=== PATIENT | male | born 1975 | race Caucasian/White ===

== ENCOUNTER → 2016-04-25 | Outpatient (CLI) | payer OTHER ==
--- NOTE | 2016-04-25 20:20 | CONS ---
DATE OF CONSULTATION: REASON FOR CONSULTATION: Sleep apnea This is a 41-year-old male patient coming in upon the request of his primary care physician and his to be evaluated for obstructive sleep apnea. The patient has a brother and his mother having obstructive sleep apnea and both of them are on treatment. He snores. He stops breathing at night. He occasionally wakes up choking and gasping for air. He goes to bed around 11:00 p.m., wakes up at 6:30 a.m. in the morning and he seems to be averaging around 5 hours of sleep. He is a bit tired and sleepy during the day. His Cameron score is 5. No recent weight gain. No alcoholism. No substance abuse. He prefers to sleep on his side rather than on his back. No sleep paralysis. No hallucinations. No cataplexy. No grinding of the teeth. No sleepwalking or sleep talking. PAST MEDICAL HISTORY: Negative. Surgical history negative. Drug allergies are not known. Medications are none. SOCIAL HISTORY: Nonsmoker. No history of alcohol. No history of IV drugs. He works for [employer]. FAMILY HISTORY: Positive for HEIDE including mother and brother. REVIEW OF SYSTEMS: Twelve-point review of systems was done. Positive findings were all mentioned above in the history of present illness. BP 140/89, pulse 73, respirations 16, temperature 98.0. Saturation 96% on room air. Weight is 229. Height 71 inches. BMI is 31.9. Neck size 17 inches. GENERAL APPEARANCE: Calm, comfortable. HEENT: Mallampati Class II. There is no goiter, neck masses. LUNGS: Clear to auscultation. HEART: Sounds are regular rate and rhythm. Normal S1, S2. ABDOMEN: Soft, nontender. No organomegaly. EXTREMITIES: No edema, cyanosis, or clubbing. IMPRESSION: 1. Obstructive sleep apnea suspected, currently under investigation. 2. Snoring. 3. Poor sleep quality. 4. Obesity with body mass index of 31.9. PLAN: 1. Weight loss. 2. Optimize sleep hygiene measures. 3. Proceed with a screening polysomnogram to evaluate this patient for obstructive sleep apnea and will make further recommendations accordingly.
== END | disposition home or self-care (01) ==
LOC: SLEEP 16:01
PROVIDERS: ATTEND Internal Medicine Critical Care Medicine
DX: G47.33 Obstructive sleep apnea (adult) (pediatric) (principal); E66.9 Obesity, unspecified; Z68.31 Body mass index [BMI] 31.0-31.9, adult
CPT/HCPCS: 99211